=== PATIENT | female | born 1970 | race Caucasian/White ===

== ENCOUNTER 2025-02-27 01:15 | Inpatient (IN) ==
--- OUTSIDE RECORDS SUMMARY | 2025-02-27 01:22 | External Medical Summary | Summary of Care ---
Author Name Unknown Organization [facility] Address [address] [place] [address] Phone [phone] Care Team Providers Care Stem Teacher Name Role Phone Jordan Linton DO Primary Care Provider [phone] Reason for Visit * Reason Onset Date Comments Appointment 02/01/2025 Encounter Details Date Type Department Care Team (Late st Contact Info) Description 02/01/2025 Telephone Family Practice [facility] [place] [address] [facility] [place] [address] Jordan Linton DO [address] [facility] [place] [address] Appointment Allergies Active Allergy Reactions Criticality Noted Date Comments Bandar Inhibitors Cough Medium 02/08/2020 Sulfamethoxazole-Trime thoprim Hives 09/03/2023 Quetiapine Other (Please comment) High 09/17/2022 Elevated blood sugar Bupropion Muscle pain Medium 09/17/2022 documented as of this encounter (statuses as of 02/02/2025) Medications Ziprasidone HCl 20 MG Oral Capsule Take 1 Capsule by mouth 2 times a day with morning and evening meals. Active Escitalopram Oxalate 5 MG Oral Tablet (Lexapro) Take 1 Tablet by mouth at bedtime. 2 Active cloNIDine HCl 0.2 MG Oral Tablet (Catapres)Indica tions:HTN, goal below 140/90 Take 1 Tablet (200 mcg) by mouth in the morning. 90 Tablet 3 2 Active Ondansetron HCl 4 MG Oral Tablet Take 1 Tablet by mouth every 6 hours as needed for Nausea. 30 Tablet 3 Active Colestipol HCl 1 GM Oral Tablet (Colestid)Indica tions:Diarrhea, unspecified type Take 2 Tablets by mouth in the morning and 2 Tablets before bedtime. 120 Tablet 11 4 Active Triamcinolone Acetonide 0.5 % External Cream (Aristocort) Apply topically to affected area 2 times a day. To affected area. 15 g 4 Active Metoprolol Succinate ER 50 MG Oral Tablet Extended Release 24 Hour (toPROL XL)Indications:H TN, goal below 140/90 TAKE 1 & 1/2 (ONE & ONE-HALF) TABLETS BY MOUTH AT BEDTIME 135 Tablet 1 4 Active Spironolactone 25 MG Oral Tablet (Aldactone)Indic ations:HTN, goal below 140/90 Take 2 Tablets by mouth in the morning and 2 Tablets before bedtime. 360 Tablet 1 4 Active Azelastine HCl 137 MCG/SPRAY Nasal SolutionIndicati ons:Chronic rhinitis Administer 1 [place] into each nostril in the morning. 30 mL 5 4 Active documented as of this encounter (statuses as of 02/02/2025) Active Problems Problem Noted Date Diagnosed Date Prediabetes 10/06/2022 Overview: Per Prediabetes protocol Bipolar disorder in full remission 09/17/2022 intradermal nevus,rt axilla & crown 11/03/0212/15 BENIGN HYPERTENSION 11/03/2002 CLASSICAL MIGRAINE WITHOU MENTION OF INTRACTABLE MIGRAINE 11/03/2002 documented as of this encounter (statuses as of 02/02/2025) Resolved Problems Problem Noted Date Diagnosed Date Resolved Date Acquired hypothyroidism 09/17/202206/26 documented as of this encounter (statuses as of 02/02/2025) Immunizations Name Administration Dates Next Due COVID-19 mRNA, LNP-s, No Pre serve, 2-Dose Series (Adform) 06/10/2021 TDAP, Age 7 and older, IM (Adacel) 07/22/2024, documented as of this encounter Social History Tobacco Use Types Packs/Day Years Used Date Smoking Tobacco: Every Day Cigarettes 1.5 40 Smokeless Tobacco: Never Alcohol Use Standard Drinks/Week Comments Yes 0 (1 standard drink = 0.6 oz pur e alcohol) occ. PHQ-2 Answer Date Recorded PHQ Adult Total Score 0 09/17/2022 Hunger Vital Sign Answer Date Recorded Within the past 12 months, y ou worried that your food would run out before you got the money to buy more. Never true 10/04/20 24 Within the past 12 months, t he food you bought just didn't last and you didn't have money to get more. Never true 10/04/2024 Childcare Answer Date Recorded Do you feel overwhelmed with taking care of a child, family member or friend? Yes 10/04/2024 Does your family need help f inding childcare? (Household - for ages 0-17 years) Not on file 10/04/2024 Clothing Answer Date Recorded Have you been unable to get clothing when it was really needed? No 10/04/2024 Is your family able to get c lothes or diapers when needed? (Household - for ages 0-17 years) Not on file 10/04/2024 Personal Safety Answer Date Recorded Do you feel unsafe or have concerns for your saf ety? No 10/04/2024 Do you have concerns for you r family's safety? (Household - for ages 0-17 years) Not on file 10/04/2024 Utilities Answer Date Recorded Do you have trouble paying y our heating, water, or electric bill? No 10/04/2024 Is your family able to pay t he heat, water, or electric bill? (Household - for ages 0-17 years) Not on file 10/04/2024 Does your family have access to good internet? (Household - for ages 0-17 years) Not on file 10/04/2024 Employment Status Answer Date Recorded Are you unemployed or without regular income? No 10/04/2024 Does the household have a re gular source of income? (Household - for ages 0-17 years) Not on file 10/04/2024 Social Connections Answer Date Recorded How often do you feel lonely or isolated from th ose around you? Rarely 10/04/2024 Financial Resource Strain Answer Date R ecorded Do you have any trouble payi ng for your medications, or do you think you might in the future? No 10/04/2024 Does your family have troubl e paying for medicine? (Household - for ages 0-17 years) Not on file 10/04/2024 Transportation Needs Answer Date Record ed Do you have trouble getting a ride to medical visits or work? (Adult - for ages 18 years and over) Not on file 10/04/2024 Does your family have a hard time getting a ride to doctors visits? (Household - for ages 0-17 years) Not on file 10/04/2024 Has lack of transportation k ept you from medical appointments, meetings, work, or from getting things needed for daily living? Check all that apply. No 10/04/2024 Do you (or your family) have trouble finding or paying for a ride (transportation)? (Household - for ages 0-17 years) Not on file 10/04/2024 Housing Stability Answer Date Recorded Do you currently live in a s helter or have no steady place to sleep at night? No 10/04/2024 Do you think you are at risk of becoming homeless? (Adult - for ages 18 years and over) Not on file 10/04/2024 Does your family worry about paying for your home or becoming homeless? (Household - for ages 0-17 years) Not on file 1 12/05/2023 Are you homeless or worried that you might be in the future? No 10/04/2024 Are you (or your family) kin eless or worried that you might be in the future? (Household - for ages 0-17 years) Not on file Food Insecurity Answer Date Recorded Do you need food for this week? No 10/04/2024 Are you able to get enough f ood for your family? (Household - for ages 0-17 years) Not on file 10/04/2024 Does your family need food t his week? (Household - for ages 0-17 years) Not on file 10/04/2024 Do you always have enough fo od for your family? (Household - for ages 0-17 years) Not on file 10/04/2024 Food Insecurity Answer Date Recorded Within the past 12 months, y ou worried that your food would run out before you got the money to buy more. Never true 10/04/20 24 Within the past 12 months, t he food you bought just didn't last and you didn't have money to get more. Never true 10/04/2024 Do you need food for this week? 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 Based on the Complexity Scheduling requirements this patient should be offered a 40 minute Return Appointment within 4 weeks of their currently scheduled appointment. If no appointment is available within 4 weeks of the original appointment. Please document this andleave original appointment on the Appt Desk. Call Attempt: 3 * Telephone Encounter - Taina Sousa OSA - 02/02/2025 1:02 PM EDT A Complexity Scheduling Outreach was made to this patient. Based on the Complexity Scheduling requirements this patient should be offered a 40 minute Return Appointment within 4 weeks of their currently scheduled appointment. If no appointment is available within 4 weeks of the original appointment. Please document this andleave original appointment on the Appt Desk. Call Attempt: 2 * Telephone Encounter - Taina Sousa OSA - 02/01/2025 4:16 PM EDT A Complexity Scheduling Outreach was made to this patient. Based on the Complexity Scheduling requirements this patient should be offered a 40 minute Return Appointment within 4 weeks of their currently scheduled appointment. If no appointment is available within 4 weeks of the original appointment. Please document this andleave original appointment on the Appt Desk. Call Attempt: 1 documented in this encounter Plan of Treatment Upcoming Encounters Date Type Department Care Team (Krystyna st Contact Info) Description 04/18/2025 8:40 AM EDT [facility] [address] [facility] [place] [address] Jordan Linton DO [address] [facility] [place] [address] Scheduled Procedures Name Priority Associated Diagnoses Date/Ti me COLONOSCOPY FLEXIBLE PROXIMA L DIAGNOSTIC Recall History of colonic polyps Health Maintenance Due Date Last Done Comments HIV Screening 1984 Hepatitis C Screening 1987 Hepatitis B Vaccine (1 of 3 - 19+ 3-dose series) 1988 Pneumococcal Vaccine: 50+ Years (1 of 2 - PCV) 1988 Cologuard 2014 Fecal Occult Blood Test 2014 Sigmoidoscopy 2014 Zoster Vaccines (1 of 2) 2019 Mammogram 06/04/2023 06/04/2022, 05/23/2021 Lung Cancer Screening 04/06/2024 04/06/2023 COVID-19 Vaccine ( season) 2024 07/02/2021, 06/10/2021 GFR 04/05/2025 04/05/2024, 10/0 12/2022, 03/17/2023, Additional history exists HbA1c 04/05/2025 04/05/2024, 05/2 12/2022, 07/19/2022 Influenza Vaccine (FLU shot) (Season Ended) 2025 Albumin/Creatinine Ratio 03/17/2026 03/17/2023 Pap Smear 04/03/2026 04/03/2023 Lipid Panel 03/17/2028 03/17/2023, 07/19/2022 Cervical Cancer Screening 04/03/2028 HPV/Co-Test 04/03/2028 04/03/2023 Colonoscopy 09/07/2028 09/07/2023, 08/26, 11/23/2019, Additional history exists Colorectal Cancer Screening 09/07/2028 DTap/Tdap Vaccines (3 - Td or Tdap) 07/22/2034 07/22/2024, 01/11/2019 RETIRED - COLONOSCOPY-EVERY 5 YRS AGES 18-100 Discontinued 09/07/2023, 09/07/2023, 11/23/2019, Additional history exists HPV (Gardasil) Vaccine Aged Out No lo nger eligible based on patient's age to complete this topic MENINGOCOCCAL (MENACTRA/MENVEO) Aged Out No longer eligible based on patient's age to complete this topic Meningitis B Vaccine (Bexsero/Trumemba) Aged Out No longer eligible based on patient's age to complete this topic documented as of this encounter Medical Devices Not on filedocumented as of this encounter Care Teams Stem Teacher Relationship Specialty Start Date End Date Jordan Linton DO [address] [place] [address] PCP - General Family Medicine 03/17/23 documented as of this encounter
--- OUTSIDE RECORDS SUMMARY | 2025-02-27 01:22 | External Medical Summary | Summary of Care ---
Author Name Unknown Organization [facility] Address [address] [facility] [place] [address] Phone [phone] Care Team Providers Care Handyperson Name Role Phone Jordan Linton DO Primary Care Provider [phone] Reason for Visit * Reason Onset Date Comments Appointment 02/01/2025 Encounter Details Date Type Department Care Team (Late st Contact Info) Description 02/01/2025 Telephone Family Practice [facility] [place] [address] [facility] [place] [address] Jordan Linton DO [address] [facility] [place] [address] Appointment Allergies Active Allergy Reactions Criticality Noted [...] MCG/SPRAY Nasal SolutionIndicati ons:Chronic rhinitis Administer 1 [place] into each nostril in the morning. 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 [address] [facility] [place] [address] Jordan Linton DO [address] [facility] [place] [address] Scheduled Procedures Name Priority Associated Diagnoses Date/Ti [...] filedocumented as of this encounter Care Teams Handyperson Relationship Specialty Start Date End Date Jordan Linton DO [address] [place] [address] PCP - General Family Medicine 03/17/23 documented as of this encounter
--- OUTSIDE RECORDS SUMMARY | 2025-02-27 01:23 | External Medical Summary | Summary of Care ---
Author Name Unknown Organization [facility] Address [address] [facility] [place] [address] Phone [phone] Care Team Providers Care Application Manager Name Role Phone Jordan Litnon DO Primary Care Provider [phone] Reason for Visit * Reason Onset Date Comments Appointment 02/01/2025 Encounter Details Date Type Department Care Team (Late st Contact Info) Description 02/01/2025 Telephone Family Practice [facility] [place] 200 [facility] [place] [address] Jordan Linton DO 200 [facility] [place] [address] Appointment Allergies Active Allergy Reactions Criticality Noted [...] MCG/SPRAY Nasal SolutionIndicati ons:Chronic rhinitis Administer 1 [place] into each nostril in the morning. 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 Not [...] Upcoming Encounters Date Type Department Care Team (Late st Contact Info) Description 04/18/2025 8:40 AM EDT Office Visit Family Practice [facility] 200 [facility] [place], [place] [address] Jordan Linton, 200 [facility] [place] [address] Scheduled Procedures Name Priority Associated Diagnoses Date/Ti [...] Lung Cancer Screening 04/06/2024 04/06/2023 COVID-19 Vaccine (3 - season) 2024 07/02/2021, 06/10/2021 GFR 04/05/2025 04/05/2024, 12/2022, 03/17/2023, Additional history exists HbA1c 04/05/2025 04/05/2024, 0512/2022, 07/19/2022 Influenza Vaccine (FLU shot) (Season Ended) [...] filedocumented as of this encounter Care Teams Application Manager Relationship Specialty Start Date End Date Jordan Linton DO [address] [place] [address] PCP - General Family Medicine 03/17/23 documented as of this encounter
--- OUTSIDE RECORDS SUMMARY | 2025-02-27 01:23 | External Medical Summary | Summary of Care ---
Author Name Unknown Organization [facility] Address [address] [facility] [address] Phone [phone] Care Team Providers Care Slurry Blender Name Role Phone Sumanth Sarah DO Primary Care Provider [phone] Reason for Visit * Reason Onset Date Comments Medication Refill 09/17/2024 Encounter Details Date Type Department Care Team (Late st Contact Info) Description 09/17/2024 Refill Family Practice [facility] [place] [address] [facility] [place] [address] Sumanth Sarah DO [address] [facility] [place] [address] HTN, goal below 140/90 Allergies Active Allergy Reactions Criticality Noted Date Comments Bandar Inhibitors Cough Medium 02/08/2020 Sulfamethoxazole-Trime thoprim Hives 09/03/2023 Quetiapine Other (Please comment) High 09/17/2022 Elevated blood sugar Bupropion Muscle pain Medium 09/17/2022 documented as of this encounter (statuses as of 09/19/2024) Medications Ziprasidone HCl 20 MG Oral Capsule Take 1 Capsule by mouth 2 times a day with morning and evening meals. Active Escitalopram Oxalate 5 MG Oral Tablet (Lexapro) Take 1 Tablet by mouth at bedtime. 2 Active cloNIDine HCl 0.2 MG Oral Tablet (Catapres)Indic ations:HTN, goal below 140/90 Take 1 Tablet (200 mcg) by mouth in the morning. 90 Tablet 3 2 Active Ondansetron HCl 4 MG Oral Tablet Take 1 Tablet by mouth every 6 hours as needed for Nausea. 30 Tablet 3 Active Colestipol HCl 1 GM Oral Tablet (Colestid)Indic ations:Diarrhea , unspecified type Take 2 Tablets by mouth in the morning and 2 Tablets before bedtime. 120 Tablet 11 4 Active Triamcinolone Acetonide 0.5 % External Cream (Aristocort) Apply topically to affected area 2 times a day. To affected area. 15 g 4 Active Metoprolol Succinate ER 50 MG Oral Tablet Extended Release 24 Hour (toPROL XL)Indications: HTN, goal below 140/90 TAKE 1 & 1/2 (ONE & ONE-HALF) TABLETS BY MOUTH AT BEDTIME 135 Tablet 1 4 Active Spironolactone 25 MG Oral Tablet (Aldactone)Clara cations:HTN, goal below 140/90 Take 2 Tablets by mouth in the morning and 2 Tablets before bedtime. 360 Tablet 1 4 Active Metoprolol Succinate ER 50 MG Oral Tablet Extended Release 24 Hour (toPROL XL)Indications: HTN, goal below 140/90 TAKE 1 & 1/2 (ONE & ONE-HALF) TABLETS BY MOUTH AT BEDTIME 135 Tablet 3 3 09/17/20 24 Discontinu ed(Refill) Spironolactone 25 MG Oral Tablet (Aldactone)Clara cations:HTN, goal below 140/90 Take 2 Tablets by mouth in the morning and 2 Tablets before bedtime. 360 Tablet 3 3 09/17/20 24 Discontinu ed(Refill) documented as of this encounter (statuses as of 09/19/2024) Active Problems Problem Noted Date Diagnosed Date Prediabetes 10/06/2022 Overview: Per Prediabetes protocol Bipolar disorder in full remission 09/17/2022 intradermal nevus,rt axilla & crown 11/03/0212/15 BENIGN HYPERTENSION 11/03/2002 CLASSICAL MIGRAINE WITHOU MENTION OF INTRACTABLE MIGRAINE 11/03/2002 documented as of this encounter (statuses as of 09/19/2024) Resolved Problems Problem Noted Date Diagnosed Date Resolved Date Acquired hypothyroidism 09/17/202206/26 documented as of this encounter (statuses as of 09/19/2024) Immunizations Name Administration Dates Next Due COVID-19 mRNA, LNP-s, No Pre serve, 2-Dose Series (Pfizer) 06/10/2021 TDAP, Age 7 and older, IM [...] the money to buy more. Never true 03/23/20 Within the past 12 months, t he food you bought just didn't last and you didn't have money to get more. Never true 03/23/2023 Utilities Answer Date Recorded Do you have trouble paying y our heating, water, or electric bill? (Adult - for ages 18 years and over) Not on file 04/12/2024 Is your family able to pay t he heat, water, or electric bill? (Household - for ages 0-17 years) Not on file 04/12/2024 Does your family have access to good internet? (Household - for ages 0-17 years) Not on file 04/12/2024 Social Connections Answer Date Recorded How often do you feel lonely or isolated from those around you? 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 Not on file documented as of this encounter Miscellaneous Notes * Telephone Encounter - Jenifer Dunn [facility] - 09/19/2024 3:04 PM ESTSigned Prescriptions: Disp Refills Metoprolol Succinate ER 50 MG Oral Tablet *135 Ta*1 Sig: TAKE 1 & 1/2 (ONE & ONE-HALF) TABLETS BY MOUTH AT BEDTIMEAuthorizing Provider: SUMANTH SARAH User: JENIFER DUNN Spironolactone 25 MG Oral Tablet ([place]*360 Ta*1 Sig: Take 2 Tablets by mouth in the morning and 2 Tablets before bedtime.Authorizing Provider: SUMANTH SARAH User: JENIFER DUNN documented in this encounter Plan of Treatment Upcoming Encounters Date Type Department Care Team (Late st Contact Info) Description 10/04/2024 9:00 AM EST Office Visit Family Practice [facility] [place] [address] [facility] [place] [address] Sumanth Sarah DO [address] [facility] [address] Scheduled Procedures Name Priority Associated Diagnoses Date/Ti me COLONOSCOPY FLEXIBLE PROXIMA L DIAGNOSTIC Recall History of colonic polyps Health Maintenance Due Date Last Done Comments Pneumococcal Vaccine: Pediatrics (0 to 5 Years) and At-Risk Patients (6 to 64 Years) (1 of 2 - PCV) 1975 HIV Screening 1984 Hepatitis C Screening 1987 Hepatitis B Vaccine (1 of 3 - 19+ 3-dose series) 1988 Cologuard 2014 Fecal Occult Blood Test 2014 Sigmoidoscopy 2014 Zoster Vaccines (1 of 2) 2019 Mammogram 06/04/2023 06/04/2022, 05/23/2021 COVID-19 Vaccine ( - 2023- season) 2024 07/02/2021, 06/10/2021 Influenza Vaccine (FLU shot) (#1) 2024 *BASELINE EKG FOR HTN 07/25/2024 GFR 04/05/2025 04/05/2024, 10/0 12/2022, 03/17/2023, Additional history exists HbA1c 04/05/2025 04/05/2024, 05/2 12/2022, 07/19/2022 Albumin/Creatinine Ratio 03/17/2026 03/17/2023 Pap Smear 04/03/2026 04/03/2023 Lipid Panel 03/17/2028 03/17/2023, 07/19/2022 Cervical Cancer Screening 04/03/2028 HPV/Co-Test 04/03/2028 04/03/2023 Colonoscopy 09/07/2028 09/07/2023, 08/26, 11/23/2019, Additional history exists Colorectal Cancer Screening 09/07/2028 DTap/Tdap Vaccines (3 - Td or Tdap) 07/22/2034 07/22/2024, 01/11/2019 Lung Cancer Screening Completed 04/06/2023 RETIRED - COLONOSCOPY-EVERY 5 YRS AGES 18-100 Discontinued 09/07/2023, 09/07/2023, 11/23/2019, Additional history exists HPV (Gardasil) Vaccine Aged Out No lo nger eligible based on patient's age to complete this topic MENINGOCOCCAL (MENACTRA/MENVEO) Aged Out No longer eligible based on patient's age to complete this topic documented as of this encounter Medical Devices Not on filedocumented as of this encounter Visit Diagnoses Diagnosis HTN, goal below 140/90 Unspecified essential hypertension documented in this encounter Care Teams Slurry Blender Relationship Specialty Start Date End Date Sumanth Sarah DO [address] [place] [address] PCP - General Family Medicine 03/17/23 documented as of this encounter
--- OUTSIDE RECORDS SUMMARY | 2025-02-27 01:23 | External Medical Summary | Summary of Care ---
Author Name Unknown Organization [facility] Address [address] [facility] [place] [address] Phone [phone] Care Team Providers Care Ethnic Studies Professor Name Role Phone Jordan Linton DO Primary Care Provider [phone] Reason for Visit * Reason Comments Re-Check Encounter Details Date Type Department Care Team (Late st Contact Info) Description 10/04/2024 9:00 AM EST Office Visit Family Practice [facility] [address] [facility] [place] [address] Jordan Linton DO [address] [facility] [place] [address] Routine medical exam*; Prediabetes; BENIGN HYPERTENSION; Chronic rhinitis Allergies Active Allergy Reactions Criticality Noted Date Comments Bandar Inhibitors Cough Medium 02/08/2020 Sulfamethoxazole-Trime thoprim Hives 09/03/2023 Quetiapine Other (Please comment) High 09/17/2022 Elevated blood sugar Bupropion Muscle pain Medium 09/17/2022 documented as of this encounter (statuses as of 10/04/2024) Medications Ziprasidone HCl 20 MG Oral Capsule [...] MCG/SPRAY Nasal SolutionIndicati ons:Chronic rhinitis Administer 1 [place] into each nostril in the morning. 30 mL 5 4 Active documented as of this encounter (statuses as of 10/04/2024) Active Problems Problem Noted Date Diagnosed Date Prediabetes 10/06/2022 Overview: Per Prediabetes protocol Bipolar disorder in full remission 09/17/2022 intradermal nevus,rt axilla & crown 11/03/0212/15 BENIGN HYPERTENSION 11/03/2002 CLASSICAL MIGRAINE WITHOU MENTION OF INTRACTABLE MIGRAINE 11/03/2002 documented as of this encounter (statuses as of 10/04/2024) Resolved Problems Problem Noted Date Diagnosed Date Resolved Date Acquired hypothyroidism 09/17/202206/26 documented as of this encounter (statuses as of 10/04/2024) Immunizations Name Administration Dates Next Due COVID-19 mRNA, LNP-s, No Pre serve, 2-Dose Series (VeriFone) 06/10/2021 TDAP, Age 7 and older, IM (Adageovanna) 07/22/2024, documented as of this encounter Social [...] ages 0-17 years) Not on file 10/04/2024 Comments No Sex and Gender Information Value Date Recorded Sex Assigned at Female 09/17/2022 9:14 AM EST Legal Sex Female 5:58 AM EST Gender Identity Female 09/17/2022 9:14 AM EST Sexual Orientation Straight 09/17/2022 9: 14 AM EST 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 Not on file Not on file documented as of this encounter Last Filed Vital Signs Vital Sign Reading Time Taken Comments Blood Pressure 122/78 10/04/2024 9:08 AM EST Pulse 62 10/04/2024 9:08 AM EST Temperature 36.4 °C (97.5 °F) 10/04/2024 9:08 AM ES T Respiratory Rate 16 10/04/2024 9:08 AM EST Oxygen Saturation 93% 10/04/2024 9:08 AM EST Inhaled Oxygen Concentration - - Weight 80.1 kg (176 lb 9.6 oz) 10/04/2024 9:08 A M EST Height 157.5 cm (5' 2.01") 10/04/2024 9:08 AM ES T Body Mass Index 32.29 10/04/2024 9:08 AM EST documented in this encounter Progress Notes * Jordan Linton, - 10/04/2024 9:19 AM EST Subjective: Kay Magana is a 53 year old female. Chief Complaint Patient presents with Re-Check HPI: Pt here for a physical. PMHx, PSHx, SHx, FHx, Medications, and Allergies fully reviewed Daughter doing better than before. HAs had urinary issues. Walks a lot according to her phone. Limits her diet. Just not hungry in the AM. Avoids late night eating. BP wonderful today. Good when checking at work too. Mammogram ordered. Cannot afford follow-up US. No desire for any shots. Patient Active Problem List Diagnosis BENIGN HYPERTENSION CLASSICAL MIGRAINE WITHOU MENTION OF INTRACTABLE MIGRAINE intradermal nevus,rt axilla & crown 11/03/02 Bipolar disorder in full remission (HCC) Prediabetes Current Outpatient Medications Medication Sig Dispense Refill Ziprasidone HCl 20 MG Oral Capsule Take 1 Capsule by mouth 2 times a day with morning and evening meals. Escitalopram Oxalate 5 MG Oral Tablet (Lexapro) Take 1 Tablet by mouth at bedtime. cloNIDine HCl 0.2 MG Oral Tablet (Catapres) Take 1 Tablet (200 mcg) by mouth in the morning. 90 Tablet 3 Ondansetron HCl 4 MG Oral Tablet Take 1 Tablet by mouth every 6 hours as needed for Nausea. 30 Tablet 0 Colestipol HCl 1 GM Oral Tablet (Colestid) Take 2 Tablets by mouth in the morning and 2 Tablets before bedtime. 120 Tablet 11 Triamcinolone Acetonide 0.5 % External Cream (Aristocort) Apply topically to affected area 2 times a day. To affected area. 15 g 0 Metoprolol Succinate ER 50 MG Oral Tablet Extended Release 24 Hour (toPROL XL) TAKE 1 & 1/2 (ONE & ONE-HALF) TABLETS BY MOUTH AT BEDTIME 135 Tablet 1 Spironolactone 25 MG Oral Tablet (Aldactone) Take 2 Tablets by mouth in the morning and 2 Tablets before bedtime. 360 Tablet 1 No current facility-administered medications for this visit. Review of patient's allergies indicates: Allergen Reactions Seroquel [Quetiapine] Other (Please comment) Elevated blood sugar Bandar Inhibitors Cough Wellbutrin [Bupropion] Muscle pain Bactrim [Sulfamethoxazole-Trimethoprim] Hives OBJECTIVE: BP 122/78 | Pulse 62 | Temp 97.5 °F (36.4 °C) (Tympanic) | Resp 16 | Ht 5' 2.01" (1.575 m) | Wt 176 lb 9.6 oz (80.1 kg) | SpO2 93% | BMI 32.29 kg/m² | BSA 1.87 m² Estimated body mass index is 32.29 kg/m² as calculated from the following: Height as of this encounter: 5' 2.01" (1.575 m). Weight as of this encounter: 176 lb 9.6 oz (80.1 kg). BP Readings from Last 3 Encounters: 10/04/24 122/78 07/22/24 157/87 03/18/24 142/94 Wt Readings from Last 3 Encounters: 10/04/24 176 lb 9.6 oz (80.1 kg) 07/22/24 185 lb (83.9 kg) 03/18/24 184 lb (83.5 kg) ROS: General: No change in weight, No weakness, No fatigue and No fevers, sweats, or chills Head: No significant headache and No recent significant head injury Eyes: No recent significant change in vision, No eye pain, redness, discharge, or excessive tearing, No diplopia and No h/o cataracts or glaucoma Ears: No recent change in hearing, No tinnitus or vertigo, No ear pain and No ear discharge Nose: No h/o frequent colds or sinusitis, No nasal stuffiness, No h/o hay fever and No significant epistaxis Throat/Oropharynx: No teeth or gum problems, No bleeding gums, No tongue complaints, No sore throatand No recent change in voice or hoarseness Neck: No complaint of lumps in neck, No swollen glands, No recent swelling in thyroid area and No significant pain in neck Breast: No new breast lumps, No severe breast pain, No nipple discharge, No recent change in shape/contor and Patient does perform monthly self breast exam Respiratory: No cough, sputum, or hemoptysis, No wheezing, No shortness of breath and No recent change in breathing Cardiac: No chest pain, No shortness of breath, No dyspnea on exertion, No orthopnea, No paroxysmalnocturnal dyspnea, No edema, No palpitations and No syncope Gastrointestinal: No dysphagia, No significant heartburn, No significant change in appetite, No nausea, vomiting, diarrhea, or constipation, No hematemesis, No blood in stools or black tarry stools, No abdominal bloating or early satiety and No abdominal pain Urinary: No urinary frequency, No dysuria, No hematuria, No urinary urgency, No polyuria, No nocturia, No incontinence, No hesitancy and No sensation of incomplete voiding Musculoskeletal: No joint pain or stiffness, No arthritis, No backache, No muscle pains or cramps and No joint swelling Hematologic: No anemia, No easy bruising or abnormal bleeding and No history of transfusion Neurologic: No fainting or blackouts, No seizures, No paralysis or focal weakness, No numbness or tingling, No tremors and No significant problems with memory PHYSICAL EXAM: General: alert, healthy and no distress Head: Normocephalic, No masses, lesions, tenderness or abnormalities Ears: External ears normal, Canals clear, TM's Normal Nose: no mucosal erythema, no mucosal edema, no purulent discharge Oropharynx: no exudate, no erythema, lips, buccal mucosa, and tongue normal and mucous membranes are moist Neck: supple, no adenopathy, no bruits, thyroid normal size, non-tender, without nodularity Heart: regular rate & rhythm, no murmurs and no gallops Lungs: chest symmetric with normal AP diameter, no chest deformities noted, no chest wall tenderness, lungs clear to auscultation Abdomen: abdomen soft, non-tender, normal bowel sounds and no masses or organomegaly Extremities: less than 2 second capillary refill, no joint deformities, effusion, or inflammation ASSESSMENT/Plan Routine medical exam (Primary) Prediabetes - HEMOGLOBIN A1C; Future; Expected date: 04/04/2025 BENIGN HYPERTENSION - BASIC METABOLIC PANEL; Future; Expected date: 04/04/2025 Chronic rhinitis - Azelastine HCl 137 MCG/SPRAY Nasal Solution; Administer 1 [place] into each nostril in the morning. Dental and sun care discussed along with weight. Will check blood work before next visit, try Azelastine for chronic rhinitis. The above was discussed and understanding was expressed. Jordan Linton DO documented in this encounter Nursing Notes * Bridget Jovel NA - 10/04/2024 9:05 AM EST Kay Magana presents for 6 month recheck. Patient denies any concerns at this time. Medications & HM reviewed. Patient has been verbally educated on the need or importance of Breast Cancer Screening, HepB Vaccine, Pneumococcal Vaccine, and Shingles Vaccine and has declined topic(s). documented in this encounter Plan of Treatment Upcoming Encounters Date Type Department Care Team (Late st Contact Info) Description 04/18/2025 8:40 AM EDT Office Visit Family Practice [facility] [place] [address] [place] [id number] Jordan Linton DO [address] [facility] [place] [id number] Scheduled Orders Name Type Priority Associated Diagnoses Orde r Schedule HEMOGLOBIN A1C Lab Routine Prediabetes Expected: 04/04/2025 (Approximate), Expires: 10/04/2025 BASIC METABOLIC PANEL Lab Routine BENIGN HYPERTENSION Expected: 04/04/2025 (Approximate), Expires: 10/04/2025 Scheduled Procedures Name Priority Associated Diagnoses Date/Ti [...] 2019 Mammogram 06/04/2023 06/04/2022, 05/23/2021 COVID-19 Vaccine (2023- season) 2024 07/02/2021, 06/10/2021 Influenza Vaccine (FLU shot) (#1) 2024 *BASELINE EKG FOR HTN 07/25/2024 GFR 04/05/2025 04/05/2024, 10/0 12/2022, 03/17/2023, Additional history exists HbA1c 04/05/2025 04/05/2024, 0512/2022, 07/19/2022 Albumin/Creatinine Ratio 03/17/2026 03/17/2023 Pap Smear [...] as of this encounter Visit Diagnoses Diagnosis Routine medical exam- Primary Routine general medical examination at a health care facility Prediabetes Other abnormal glucose BENIGN HYPERTENSION Unspecified essential hypertension Chronic rhinitis documented in this encounter Care Teams Ethnic Studies Professor Relationship Specialty Start Date End Date Jordan Linton DO [address] [place] [address] PCP - General Family Medicine 03/17/23 documented as of this encounter
--- NOTE | 2025-02-27 02:14 | Emergency Department Note ---
Impression & Plan Acute non-ST elevation myocardial infarction (NSTEMI) admit to the [facility] ED Provider Note NAME: CLAUDE HERNÁNDEZ AGE: 54 SEX: Female INFORMANT: Patient ED PROVIDER(S): Janis Witt DO CHIEF COMPLAINT: chest pain and shortness of breath PLAN: Disposition: admit to the [facility] MEDICAL DECISION MAKING: This is a 54-year-old female patient who presents to the emergency department after developing significant chest pain and shortness of breath while trying to move large logs out of the middle of the road. Patient states that she came up on these pieces of wood from a fall injury and tried to move them but had significant chest discomfort, diaphoresis, chest tightness and could not breathe. She then drove home feeling as if she was going to and called EMS. EKG was obtained and showed no obvious signs of ischemia. Laboratory studies revealed a white blood cell count of 13.8. H&H was stable. Coags were normal. Glucose was 124. Troponin was elevated at 164. EMS had given the patient aspirin. the patient remained hypertensive and was given a dose of IV Lopressor. She was bolused with IV heparin and started on a heparin drip. Patient's blood pressure was controlled nicely. I discussed the case with the [facility] Care/management discussed with: equipment manager and [facility] Triage Nursing notes: reviewed and agree with them. Vital Signs: reviewed and remarkable for hypertension Additional History obtained from: the patient's son who was at the bedside Chronic Medical/Social Conditions affecting care: significant family history which includes the patient's father who had multivessel heart disease requiring CABG in his 40s. Differential Diagnosis: STEMI, NSTEMI, cardiac ischemia anxiety, CHF Diagnostics, independently interpreted by me: ECG: normal sinus rhythm at a rate of 79 with PACs. There is poor baseline artifact. There is no obvious ST segment elevation or signs of ischemia. Cardiac Monitoring: Normal sinus rhythm at a rate of 82 Imaging studies: portable chest x-ray: No acute pulmonary infiltrates or consolidation as per my independent interpretation HPI: 54 year old Female arrives for evaluation of chest pain shortness of breath. presents to the emergency department after developing significant chest pain and shortness of breath while trying to move large logs out of the middle of the road. Patient states that she came up on these pieces of wood from a fall injury and tried to move them but had significant chest discomfort, diaphoresis, chest tightness and could not breathe. She then drove home feeling as if she was going to and called EMS. PAST MEDICAL HISTORY: bipolar disorder, hypertension, bile production status post cholecystic, PAST SURGICAL HISTORY: cholecystectomy, family history: The patient's father had CABG at age 48 SOCIAL HISTORY: patient smokes 1.5 packs of cigarettes per day HOME MEDICATIONS: see list ALLERGIES: none VITALS: See Below PHYSICAL EXAMINATION: HEENT: Head - normocephalic and atraumatic Pupils are equal, round, and reactive to light. Extraocular eye muscles are intact, and sclera are anicteric. Nose - moist nasal mucosa without discharge. Mouth - moist buccal mucosa. Oropharynx is nonerythematous and there is no tonsillar exudate or edema noted. Neck: Supple; no JVD, nuchal rigidity, cervical lymphadenopathy, or auscultated bruits. Heart: Regular rate and rhythm. There is a normal S1 and S2 with no murmurs, clicks, or gallops appreciated. Lungs: Clear to auscultation bilaterally with no wheezes, rales, or rhonchi. Abdomen: Soft, completely nontender, nondistended, with good bowel sounds. There are no palpable pulsatile masses or hepatosplenomegaly. There is no guarding, rigidity, or rebound noted. Extremities: No evidence of cyanosis, clubbing, or edema. There are easily palpable peripheral pulses. Skin: warm and dry with good turgor and no rashes. Emergency department treatment: collarette separator, IV Lopressor, IV heparin bolus, IV heparin drip Emergency Department course: The patient was evaluated in room A-2. A complete history and physical was performed. A twelve-lead EKG was obtained as described above. An order was placed for continuous cardiac monitoring. Patient was in a normal sinus rhythm at a rate of 82. She was chest pain-free upon my evaluation. Portable chest x-ray was performed as described above. I reviewed results of laboratory studies and x-ray with the patient and her son. Patient had her stool heme tested by nursing staff which was negative. Her blood pressure was controlled with IV Lopressor. She was bolused with IV heparin and started on a heparin drip. [facility] I have personally spent greater than 30 minutes of critical care time in the direct management of this patient. This includes bedside care, interpretation of diagnostic studies, and testing, discussion with consultants, patient, and family members, and other required patient management activities. This 30 minutes is in excess of all separately billable procedures. Past Med/Surg History Problem List (Updated 02/27/25 @ 06:53 by Janis Witt DO) Acute non-ST elevation myocardial infarction (NSTEMI) (Acute) NSTEMI (non-ST elevated myocardial infarction) Chest pain (Acute) Acute chest pain (Acute) GERD (gastroesophageal reflux disease) (Acute) Social History Smoking Status: Current every day smoker Tobacco Type: Cigarettes Preferred Language: Occitan Feels Safe at Home: Yes Allergies Allergies Allergy/AdvReac Type Severity Reaction Status Date / Time No Known Allergies Allergy Unknown Verified 04/23/05 17:44 Home Meds Home Medications Medication Instructions Recorded Confirmed clonidine HCl 0.2 mg tablet 0.2 mg PO DAILY 02/27/25 02/27/25 colestipol 1 gram tablet 1 g PO BID 02/27/25 02/27/25 escitalopram oxalate 5 mg tablet 5 mg PO DAILY 02/27/25 02/27/25 metoprolol succinate 50 mg 75 mg PO DAILY 02/27/25 02/27/25 tablet,extended release 24 hr spironolactone 25 mg tablet 50 mg PO BID 02/27/25 02/27/25 ziprasidone HCl 20 mg capsule 20 mg PO BID 02/27/25 02/27/25 (Kody) Results & Data (ED) Vital Signs Vital Signs - 24 hr 02/27/25 01:22 02/27/25 01:22 02/27/25 01:27 Pulse Rate 85 82 Pulse Rate [Apical] Pulse Rate from SpO2 Sensor Pulse Rhythm Respiratory Rate 20 Respiratory Effort / Characteristics Non-Labored Spontaneous Respiratory Depth Normal Respiratory Pattern Regular Blood Pressure 166/108 H Blood Pressure [Right Arm] Blood Pressure Mean 127 Blood Pressure Mean [Right Arm] Blood Pressure Position Lying Blood Pressure Position [Right Arm] Pulse Oximetry 94 94 Oxygen Delivery Method Room Air Room Air Sepsis Recent Fever Within 48 Hours No Sepsis New/Unexplained Change in Mental Status N/A Sepsis Action Taken by Nursing No Action Required 02/27/25 02:32 02/27/25 02:32 02/27/25 03:00 Pulse Rate 80 92 H Pulse Rate [Apical] 79 Pulse Rate from SpO2 Sensor 90 Pulse Rhythm Regular Respiratory Rate 18 20 Respiratory Effort / Characteristics Respiratory Depth Respiratory Pattern Blood Pressure Blood Pressure [Right Arm] 153/100 H Blood Pressure Mean Blood Pressure Mean [Right Arm] 117 Blood Pressure Position Blood Pressure Position [Right Arm] Lying Pulse Oximetry 94 94 93 Oxygen Delivery Method Room Air Room Air Room Air Sepsis Recent Fever Within 48 Hours Sepsis New/Unexplained Change in Mental Status Sepsis Action Taken by Nursing 02/27/25 03:00 Pulse Rate Pulse Rate [Apical] Pulse Rate from SpO2 Sensor Pulse Rhythm Respiratory Rate Respiratory Effort / Characteristics Respiratory Depth Respiratory Pattern Blood Pressure 184/113 H Blood Pressure [Right Arm] Blood Pressure Mean 142 Blood Pressure Mean [Right Arm] Blood Pressure Position Blood Pressure Position [Right Arm] Pulse Oximetry Oxygen Delivery Method Sepsis Recent Fever Within 48 Hours Sepsis New/Unexplained Change in Mental Status Sepsis Action Taken by Nursing Laboratory Data 02/27/25 01:30 02/27/25 01:30 Lab Results 02/27/25 Range/Units 01:30 WBC 13.80 H (4.8-10.8) K/ul RBC 4.46 (4.20-5.40) M/uL Hgb 15.3 (12.0-16.0) g/dl Hct 44.0 (37.0-47.0) % MCV 98.7 (80.0-100.0) fL MCH 34.3 H (25.0-34.0) pg MCHC 34.8 (32.0-36.0) g/dL RDW Std Deviation 47.9 H (36.4-46.3) fL RDW Coeff of Lul 13.2 (11.5-14.5) % Plt Count 387 (130-400) K/uL MPV 9.0 L (9.4-12.4) fL Immature Gran % (Auto) 0.5 % Neut % (Auto) 70.1 % Lymph % (Auto) 23.0 % Brule % (Auto) 5.1 % Eos % (Auto) 0.9 % Baso % (Auto) 0.4 % Neut # (Auto) 9.68 H (1.40-6.50) K/uL Lymph # (Auto) 3.18 (1.20-3.40) K/uL Brule # (Auto) 0.70 H (0.11-0.59) K/uL Eos # (Auto) 0.12 (0.00-0.50) K/uL Baso # (Auto) 0.05 (0.00-0.20) K/uL Immature Gran # (Auto) 0.07 (0.01-0.20) K/uL PT 10.3 (9.0-12.0) Seconds INR 0.9 (0.9-1.1) APTT 31 (21-31) Seconds PTT Ratio 1.2 Sodium 138 (136-145) mmol/L Potassium 3.6 (3.5-5.1) mmol/L Chloride 99 (98-107) mmol/L Carbon Dioxide 30 (21-32) mmol/L Anion Gap 9 (3-11) BUN 10 (6-23) mg/dl Creatinine 0.84 (0.6-1.2) mg/dl Est Cr Clr Drug Dosing 77.3 ml/min eGFR 82.01 BUN/Creatinine Ratio 11.9 (10-20) Glucose 124 H (70-99(Fasting)) mg/dl Calcium 9.8 (8.6-10.3) mg/dl Magnesium 1.7 (1.7-2.4) mg/dl Total Bilirubin 0.6 (0.2-1.0) mg/dl AST 42 H (13-39) U/L ALT 33 (7-52) U/L Alkaline Phosphatase 57 (34-104) U/L Troponin I High Sens 164.6 H* (0-14) pg/ml Total Protein 7.7 (6.0-8.3) gm/dl Albumin 4.4 (3.4-5.0) gm/dl Globulin 3.3 (2.5-4.0) gm/dl Albumin/Globulin Ratio 1.3 (0.9-2) Lipase 24 (11-82) U/L Administered Medications Sodium Chloride (Nss) 1,000 mls @ 60 mls/hr IV .[id number] STA Stop: 02/27/25 19:53 Last Admin: 02/27/25 04:02 Dose: 60 mls/hr Documented By: Heparin Sodium/Dextrose (Heparin 51334 Unit/500 Ml D5w) 25,000 units in 500 mls @ 23 mls/hr IV .[id number] WILLIAM; Protocol Stop: 03/29/25 03:29 Last Admin: 02/27/25 04:04 Dose: 1,150 units/hr, 23 mls/hr Documented By: Co-signed By: CHARBEL Lorazepam (Lorazepam 0.5 Mg Tab) 0.5 mg PO TID PRN PRN Reason: Anxiety Stop: 03/29/25 03:51 Last Admin: 02/27/25 06:37 Dose: 0.5 mg Documented By: JULIENNEW Discontinued Medications Heparin Sodium (Porcine) (Heparin Sod (Porcine) 1000 Unit/Ml) 1 units IV NOW ONE Stop: 02/27/25 03:29 Last Admin: 02/27/25 04:03 Dose: 5,000 units Documented By: Co-signed By: CHARBEL Metoprolol Tartrate (Metoprolol Tartrate 1 Mg/Ml Vial) 5 mg IV NOW STA Stop: 02/27/25 03:13 Last Admin: 02/27/25 04:38 Dose: 5 mg Documented By: Nitroglycerin (Nitroglycerin Sl 0.4 Mg/Tab Tab) 0.4 mg SL NOW STA Stop: 02/27/25 03:10 Last Admin: 02/27/25 03:25 Dose: 0.4 mg Documented By: Ziprasidone (Ziprasidone Hcl 20 Mg Cap) 20 mg PO NOW STA Stop: 02/27/25 03:13 Last Admin: 02/27/25 03:42 Dose: 20 mg Documented By: Imaging Data Radiologist's Impression: Chest X-Ray 02/27/25 02:07 EXAM: XR chest 1V portable CLINICAL HISTORY: Chest pain, nonspecific TECHNIQUE: Radiograph of chest was acquired. COMPARISON: 07/12/2015 FINDINGS: Increased soft tissue density in bilateral lower zones - likely due to overlying soft tissue The lungs are clear and well-expanded with no pulmonary infiltrate or pleural effusion. The cardiomediastinal silhouette is within normal limits. No acute osseous abnormality. IMPRESSION: 1. No acute cardiopulmonary disease. Electronically signed by Ricardo Layne 02-27-2025 03:41 AM Discharge Plan Visit Data Chief Complaint: Cardiac Assessment Stated Complaint: CHEST TIGHT, SOB ED Provider: Janis Witt Discharge Problem: Acute non-ST elevation myocardial infarction (NSTEMI) Condition: Critical Discharge Instructions Interventions: ED Discharge Assessment Last Done: 02/27/25 03:53
[2025-02-27 02:20] LABS: Basophils # (auto) 0.05 K/uL (0.00-0.20); Basophils % (auto) 0.4 %; Eosinophils # (auto) 0.12 K/uL (0.00-0.50); Eosinophils % (auto) 0.9 %; Hemoglobin 15.3 g/dl (12.0-16.0); Immature Granulocytes # (auto) 0.07 K/uL (0.01-0.20); Immature Granulocytes % (auto) 0.5 %; Lymphocytes # (auto) 3.18 K/uL (1.20-3.40); Mean Corpuscular Hemoglobin 34.3 pg (25.0-34.0); Mean Corpuscular Hgb Conc 34.8 g/dL (32.0-36.0); Mean Corpuscular Volume 98.7 fL (80.0-100.0); Monocytes % (auto) 5.1 %; Neutrophils # (auto) 9.68 K/uL (1.40-6.50); Neutrophils % (auto) 70.1 %; Platelet Count 387 K/uL (130-400); RDW Coefficient of Variation 13.2 % (11.5-14.5); RDW Standard Deviation 47.9 fL (36.4-46.3); Red Blood Count 4.46 M/uL (4.20-5.40)
[2025-02-27 02:28] LABS: Albumin Globulin Ratio 1.3 (0.9-2); Albumin Level 4.4 gm/dl (3.4-5.0); BUN Creatinine Ratio 11.9 (10-20); Bilirubin,Total 0.6 mg/dl (0.2-1.0); Calcium 9.8 mg/dl (8.6-10.3); Creatinine Clr Calc Pharmacy 77.3 ml/min; Globulin 3.3 gm/dl (2.5-4.0); Potassium 3.6 mmol/L (3.5-5.1); Total Protein 7.7 gm/dl (6.0-8.3)
[2025-02-27 02:54] LABS: Troponin I High Sensitivity 164.6 pg/ml (0-14)
[2025-02-27] MEDS ORDERED: Heparin IV Adult Wt-Based Standard w/ INITIAL Bolus Protocol IV STA (03:13)
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
[2025-02-27] MEDS: NITROGLYCERIN SL 0.4 MG/TAB TAB SL STA (03:25)
[2025-02-27 03:31] LABS: INR 0.9 (0.9-1.1); Partial Thromboplastin Ratio 1.2; Partial Thromboplastin Time 31 Seconds (21-31); Prothrombin Time 10.3 Seconds (9.0-12.0)
[2025-02-27 03:37] LABS: Magnesium 1.7 mg/dl (1.7-2.4)
--- NOTE | 2025-02-27 03:42 | XRay Report ---
EXAM: XR chest 1V portable CLINICAL HISTORY: Chest pain, nonspecific TECHNIQUE: Radiograph of chest was acquired. COMPARISON: 07/12/2015 FINDINGS: Increased soft tissue density in bilateral lower zones - likely due to overlying soft tissue The lungs are clear and well-expanded with no pulmonary infiltrate or pleural effusion. The cardiomediastinal silhouette is within normal limits. No acute osseous abnormality. IMPRESSION: 1. No acute cardiopulmonary disease. Electronically signed by Ricardo Layne 02-27-2025 03:41 AM
[2025-02-27] MEDS ORDERED: PROMETHAZINE 12.5 MG/50.5 ML BAG IV PRN (03:52)
[2025-02-27] MEDS ORDERED: oxyCODONE HCL IR 5 MG TAB (IMMEDIATE RELEASE) PO PRN (03:52)
[2025-02-27] MEDS ORDERED: MoRPHine SULFATE 4 MG/ML 1 ML CARP\\VIAL IV PRN (03:52)
[2025-02-27] MEDS ORDERED: NITROGLYCERIN SL 0.4 MG/TAB TAB SL PRN (03:52)
[2025-02-27] MEDS: SODIUM CHLORIDE 0.9% 1,000 ML IV STA (04:02)
[2025-02-27] MEDS: HEPARIN SOD (PORCINE) 1000 UNIT/ML IV ONE ×2 (04:03→11:16)
[2025-02-27] MEDS: HEPARIN 25000 UNIT/500 ML D5W 25,000 UNITS/500 ML BAG IV SCH (04:04)
[2025-02-27] MEDS: METOPROLOL TARTRATE 1 MG/ML VIAL IV STA (04:38)
[2025-02-27] MEDS: LORazepam 0.5 MG TAB PO PRN (06:37)
[2025-02-27 06:53] LABS: Chol HDL Ratio 5.2 (0-5)
[2025-02-27 07:01] LABS: Troponin I High Sensitivity 467.4 pg/ml (0-14)
[2025-02-27 07:04] LABS: Estimated Average Glucose 128 mg/dl; Hemoglobin A1C 6.1 % (4.5-5.6)
--- NOTE | 2025-02-27 09:01 | Electrocardiogram Report ---
Test Reason : Blood Pressure : */* mmHG Vent. Rate : 79 BPM Atrial Rate : 79 BPM P-R Int : 146 ms QRS Dur : 78 ms QT Int : 396 ms P-R-T Axes : 57 51 86 degrees QTcB Int : 454 ms Sinus rhythm with Premature atrial complexes Nonspecific ST and T wave abnormality Abnormal ECG When compared with ECG of 07-Apr-2018 12:12, Premature atrial complexes are now Present Lead artifact in V3 and V6 limits interpretation Confirmed by Maribel Estrella (Jackie) on 02/27/2025 9:01:13 AM Referred By: REFERRED SELF Confirmed By: Maribel Estrella
[2025-02-27] MEDS: ATORVASTATIN 40 MG TAB PO SCH (09:12)
[2025-02-27] MEDS: NICOTINE 21 MG/24 HR TDSY TD SCH (09:12)
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
[2025-02-27] MEDS: ESCITALOPRAM OXALATE 10 MG TAB PO SCH (09:42)
[2025-02-27] MEDS: cloNIDine HCL 0.1 MG TAB PO SCH (09:42)
[2025-02-27] MEDS: METOPROLOL SUCC 25MG EXT REL TAB PO SCH (09:42)
[2025-02-27 10:58] LABS: ANTI-Xa, UFH(UnfractionatedHep 0.18 IU/ml (0.3-0.7)
[2025-02-27] MEDS: COLESTIPOL HCL 1 GM TAB PO SCH (11:16)
--- NOTE | 2025-02-27 13:38 | Pre Anesthesia Assessment ---
Date of Service February 27, 2025 Pre Sedation Assessment Vital Signs Temp Pulse Pulse Pulse Resp BP BP 02/27/25 13:28 65 18 120/84 02/27/25 12:13 98.2 F 60 18 115/72 02/27/25 09:46 71 22 138/97 02/27/25 09:03 78 22 02/27/25 09:00 125/88 02/27/25 08:45 73 18 02/27/25 08:30 126/68 02/27/25 08:24 75 19 02/27/25 08:20 02/27/25 08:12 74 20 02/27/25 08:00 142/82 H 02/27/25 07:30 146/96 H 02/27/25 07:24 75 21 02/27/25 06:59 76 02/27/25 06:57 80 18 131/95 02/27/25 06:32 131/95 02/27/25 06:30 72 22 02/27/25 05:48 66 02/27/25 05:30 150/110 H 02/27/25 05:05 74 146/109 H 02/27/25 05:04 81 02/27/25 05:00 67 19 02/27/25 05:00 146/109 H 02/27/25 04:38 77 167/109 H 02/27/25 04:30 80 16 02/27/25 04:30 167/109 H 02/27/25 04:19 89 95 H 145/96 H 02/27/25 04:19 81 18 02/27/25 04:09 83 22 02/27/25 04:02 145/96 H 02/27/25 03:48 82 22 02/27/25 03:44 171/106 H 02/27/25 03:33 77 17 02/27/25 03:30 156/101 H 02/27/25 03:00 184/113 H 02/27/25 03:00 92 H 20 02/27/25 02:32 79 18 153/100 H 02/27/25 02:32 80 02/27/25 01:27 82 02/27/25 01:22 02/27/25 01:22 85 20 166/108 H Pulse Ox O2 Del Method O2 Flow Rate 02/27/25 13:28 97 Room Air 02/27/25 12:13 97 Nasal Cannula 2 02/27/25 09:46 97 Nasal Cannula 2 02/27/25 09:03 98 Nasal Cannula 2 02/27/25 09:00 02/27/25 08:45 97 Nasal Cannula 2 02/27/25 08:30 02/27/25 08:24 97 Nasal Cannula 2 02/27/25 08:20 89 L Room Air 02/27/25 08:12 90 Room Air 02/27/25 08:00 02/27/25 07:30 02/27/25 07:24 92 Room Air 02/27/25 06:59 02/27/25 06:57 93 Room Air 02/27/25 06:32 02/27/25 06:30 93 Room Air 02/27/25 05:48 95 Room Air 02/27/25 05:30 02/27/25 05:05 02/27/25 05:04 02/27/25 05:00 93 Room Air 02/27/25 05:00 02/27/25 04:38 02/27/25 04:30 93 Room Air 02/27/25 04:30 02/27/25 04:19 94 Room Air 02/27/25 04:19 95 Room Air 02/27/25 04:09 93 Room Air 02/27/25 04:02 02/27/25 03:48 02/27/25 03:44 02/27/25 03:33 92 Room Air 02/27/25 03:30 02/27/25 03:00 02/27/25 03:00 93 Room Air 02/27/25 02:32 94 Room Air 02/27/25 02:32 94 Room Air 02/27/25 01:27 02/27/25 01:22 94 Room Air 02/27/25 01:22 94 Room Air Cardiovascular + regular rate Respiratory + respiratory effort normal Pre-Sedation Airway Assessment Smoking Status: Current every day smoker Hx Sleep Apnea: No Hx Difficult Intubation: No Short, Thick Neck: No Thyromental Distance: > or= 3.5 Finger Breadths Oral Cavity: + WNL Mallampati Class: III ASA: ASA3 NPO Status Date of Last Intake of Fluids: 02/27/25 Time of Last Intake of Fluids: 03:00 Date of Last Intake of Solid Food: 02/26/25 Time of Last Intake of Solid Foods: 18:00 Procedure Planning Contraindications for Sedation: none Current Medications Reviewed: Yes Notes The planned sedation has been discussed with the patient. Informed Consent was obtained. I have identified the patient, determined the appropriateness of sedation and have assessed the patient immediately prior to the procedure. All medicine(s) and interventions are by my order.
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
[2025-02-27 14:50] LABS: iSTAT Arterial Blood Gas HCO3 27 meg/L (19-24); iSTAT Arterial Blood Gas pCO2 48 mmHg (35-46); iSTAT Arterial Blood Gas pH 7.35 (7.35-7.45); iSTAT Arterial Blood Gas pO2 56 mmHg (80-95); iSTAT Carbon Dioxide 28 mmol/L (24-31); iSTAT Hematocrit 40 % (37-47); iSTAT Hemoglobin 13.6 g/dl (12.0-16.0); iSTAT Potassium 4.1 mmol/L (3.3-5.0); iSTAT Sodium 138 mmol/L (135-144)
[2025-02-27 14:52] LABS: iSTAT Arterial Blood Gas HCO3 29 meg/L (19-24); iSTAT Arterial Blood Gas pCO2 53 mmHg (35-46); iSTAT Arterial Blood Gas pH 7.35 (7.35-7.45); iSTAT Arterial Blood Gas pO2 30 mmHg (80-95); iSTAT Carbon Dioxide 31 mmol/L (24-31); iSTAT Hematocrit 41 % (37-47); iSTAT Hemoglobin 13.9 g/dl (12.0-16.0); iSTAT Potassium 4.2 mmol/L (3.3-5.0); iSTAT Sodium 137 mmol/L (135-144)
[2025-02-27] MEDS: MIDAZOLAM HCL 1 MG/ML 2ML VIAL ONE ×2 (14:53→15:26)
[2025-02-27] MEDS: niCARdipine 2,000 MCG/20 ML SYR ONE (14:53)
[2025-02-27] MEDS: IODIXANOL (VISIPAQUE) 320 MG/ML 100ML IV ONE (14:53)
[2025-02-27] MEDS: NITROGLYCERIN/D5W 100MCG/ML 20ML SYR ONE (14:53)
[2025-02-27] MEDS: OPTIRAY 350 ONE (15:25)
[2025-02-27] MEDS: HEPARIN (PORCINE) 1000 UNIT/ML 10 ML (CATH LAB USE ONLY) ONE (15:25)
[2025-02-27] MEDS: fentaNYL citrate PF 100 MCG/2 ML VIAL ONE (15:25)
[2025-02-27] MEDS: CLOPIDOGREL BISULFATE 300 MG TAB ONE (15:28)
--- NOTE | 2025-02-27 15:31 | Post Anesthesia Assessment ---
Date of Service February 27, 2025 Post Sedation Assessment Vital Signs Temp Pulse Pulse Pulse Resp BP BP 02/27/25 14:55 63 02/27/25 14:55 61 02/27/25 13:28 65 18 120/84 02/27/25 12:13 98.2 F 60 18 115/72 02/27/25 09:46 71 22 138/97 02/27/25 09:03 78 22 02/27/25 09:00 125/88 02/27/25 08:45 73 18 02/27/25 08:30 126/68 02/27/25 08:24 75 19 02/27/25 08:20 02/27/25 08:12 74 20 02/27/25 08:00 142/82 H 02/27/25 07:30 146/96 H 02/27/25 07:24 75 21 02/27/25 06:59 76 02/27/25 06:57 80 18 131/95 02/27/25 06:32 131/95 02/27/25 06:30 72 22 02/27/25 05:48 66 02/27/25 05:30 150/110 H 02/27/25 05:05 74 146/109 H 02/27/25 05:04 81 02/27/25 05:00 67 19 02/27/25 05:00 146/109 H 02/27/25 04:38 77 167/109 H 02/27/25 04:30 80 16 02/27/25 04:30 167/109 H 02/27/25 04:19 89 95 H 145/96 H 02/27/25 04:19 81 18 02/27/25 04:09 83 22 02/27/25 04:02 145/96 H 02/27/25 03:48 82 22 02/27/25 03:44 171/106 H 02/27/25 03:33 77 17 02/27/25 03:30 156/101 H 02/27/25 03:00 184/113 H 02/27/25 03:00 92 H 20 02/27/25 02:32 79 18 153/100 H 02/27/25 02:32 80 02/27/25 01:27 82 02/27/25 01:22 02/27/25 01:22 85 20 166/108 H Pulse Ox O2 Del Method O2 Flow Rate 02/27/25 14:55 02/27/25 14:55 02/27/25 13:28 97 Room Air 02/27/25 12:13 97 Nasal Cannula 2 02/27/25 09:46 97 Nasal Cannula 2 02/27/25 09:03 98 Nasal Cannula 2 02/27/25 09:00 02/27/25 08:45 97 Nasal Cannula 2 02/27/25 08:30 02/27/25 08:24 97 Nasal Cannula 2 02/27/25 08:20 89 L Room Air 02/27/25 08:12 90 Room Air 02/27/25 08:00 02/27/25 07:30 02/27/25 07:24 92 Room Air 02/27/25 06:59 02/27/25 06:57 93 Room Air 02/27/25 06:32 02/27/25 06:30 93 Room Air 02/27/25 05:48 95 Room Air 02/27/25 05:30 02/27/25 05:05 02/27/25 05:04 02/27/25 05:00 93 Room Air 02/27/25 05:00 02/27/25 04:38 02/27/25 04:30 93 Room Air 02/27/25 04:30 02/27/25 04:19 94 Room Air 02/27/25 04:19 95 Room Air 02/27/25 04:09 93 Room Air 02/27/25 04:02 02/27/25 03:48 02/27/25 03:44 02/27/25 03:33 92 Room Air 02/27/25 03:30 02/27/25 03:00 02/27/25 03:00 93 Room Air 02/27/25 02:32 94 Room Air 02/27/25 02:32 94 Room Air 02/27/25 01:27 02/27/25 01:22 94 Room Air 02/27/25 01:22 94 Room Air Recovery Score Activity: Moves 4 extremities Respiration: Deep Breath/Cough Circulation: +/-20% PreAnes Value Consciousness: Fully Awake Oxygen Saturation: O2 needed for >90% Discharge Sedation Level of Care: Fast Track Phase II
--- NOTE | 2025-02-27 15:45 | Cardiac Catheterization ---
[facility] Data: Crosscutter Rolled Glass Cardiac Status Clinical evaluation leading to the procedure CAD Presenation: Non STEMI Anginal Classification: CCS IV Diagnostic Physicians Name: Ilya Evans MD Closure Device Recommendations: PCI without planned CABG Cardiac Cath Procedure Full Procedure Date February 27, 2025 Pre-Procedure Diagnosis Pre-Procedure Diagnosis: Non STEMI AUC Score AUC Score: 8 Post-Procedure Diagnosis Post-Procedure Diagnosis: Severe CAD, Successful PCI and Normal Intracardiac Pressures Procedure(s) Performed Procedure(s) Performed: Coronary Angiography, Left Heart Cath and Drug Eluting Stent Cigarette Making Machine Hopper Feeder Ilya Evans MD Yarn Dry Room Worker(s) Casey Estimated Blood Loss Estimated Blood Loss: 20 Medication(s) Medication(s): Clopidogrel, Fentanyl, Heparin, Lidocaine 1%, Nicardipine, Nitroglycerin and Versed Summary of Findings Indication: NSTEMI, pulmonary hypertension on echo Access: 6 Fr right radial artery, 6 Fr right antecubital vein Catheters: [place], EBU 3.5 guide, 6 Fr [place] Findings: LM -normal caliber, no significant disease LAD -medium caliber, 90% focal mid segment stenosis just after takeoff of large D2. Remainder of LAD without significant disease and extends to apex. D2 with 30% ostial stenosis Circumflex -medium caliber, 20% ostial, remainder of AV groove circumflex without significant disease. Large OM1 with 20% ostial and remainder of vessel without disease. Small left PLB without disease RCA -dominant, large caliber, 20-30% distal stenosis. Medium RPDA and right posterior AV branch without significant disease. RA 11 RV 58/13 PA 62/30 (44) PAWP 22 LV 23 PaSat 53% AoSat 87% [place] CO/CI 3.9/2.1 Thermo CO/CI 4.2/2.3 TPG 21 mmHg PVR 5.4 Wood unit -- PCI -- Antithrombotic therapy: Heparin, clopidogrel Procedure: Left main cannulated with EBU 3.5 guide Pre-procedure flow SESAR 2-3 Care Attendant 50 wire passed across lesion into distal LAD Whisper wire placed into D2 Mid LAD lesion predilated with 2.5 compliant balloon Dilated lesion stented with 3.0 x 18 mm Srini drug-eluting stent Diagonal rewired through stent struts with new remote pilot operator 50 wire Stent post-dilated with 3.5 noncompliant balloon Proximal D2 dilated with 2.0 balloon through stent struts IC vasodilators administered for spasm Residual stenosis further dilated with prolonged 2.5 mm balloon inflation Additional IC vasodilator administered Post procedure SESAR 3 flow, stent well expanded with minimal residual stenosis. Mild to moderate residual ostial stenosis in diagonal but SESAR-3 flow. No apparent cardiac complications. Arterial Closure: TR band Summary: 1. Severe single vessel coronary artery disease - 90% focal mid LAD stenosis at takeoff of D2 2. Elevated left and right-sided filling pressures 3. Pulmonary hypertension (combined pre and postcapillary) 4. Preserved cardiac output 5. Successful PCI of mid LAD with single drug-eluting stent (3.0 x 18 mm Srini; postdilated with 3.5 NC). PTCA of jailed D2 ostium with 2.5 balloon Recommendations: To PCU for continued monitoring Loaded with clopidogrel 600 mg in Crosscutter Rolled Glass Continue dual-antiplatelet therapy for at least 1 year Continue ASCVD risk factor modification Gentle diuresis as needed per Dr. Taylor Hemodynamics Rest Ao:: 139/80/135 Final Ao: 130/78/103 LV: 137/23 Recommendations Recommendations: PCI without planned CABG Radiation Exposure (mGy) 2925 Contrast (mls) 140 Anesthesia Moderate 4817-4431 Procedural Complication(s) None Disposition PCU I attest to the content of the Intraoperative Record and any orders documented therein. Any exceptions are noted below. [facility] Card Cath Procedure Codes Cardiac Catheterization Procedure 1: Cardiovascular Cath Procedures: 11863 Coronaries & LHC (+/-LV) & RHC Moderate Sedation Procedure 1: Sedation/Anesthesia: 16477 Mod Sedation by the same physician;Init15 Min Child Age 5 & Up Procedure 2: Sedation/Anesthesia: 25168 Mod Sedation by the same physician; Ea [id number] Minutes Stenting Procedure 1: Cardiovascular Stent Procedures: 55256 Perc transcatheter placement of intracoronary stent(s), with ang PG Care Time/CCT Total # of Minutes Spent Total Time Spent with Patient: Total time spent is greater than 50% in coordination of care (as documented) at patient's floor/unit and/or counseling patient:
[2025-02-27 18:18] LABS: ANTI-Xa, UFH(UnfractionatedHep 0.25 IU/ml (0.3-0.7)
--- NOTE | 2025-02-28 04:52 | Electrocardiogram Report ---
Test Reason : Blood Pressure : */* mmHG Vent. Rate : 71 BPM Atrial Rate : 71 BPM P-R Int : 146 ms QRS Dur : 76 ms QT Int : 438 ms P-R-T Axes : 22 13 -14 degrees QTcB Int : 475 ms Normal sinus rhythm T wave abnormality, consider inferior ischemia Abnormal ECG When compared with ECG of 27-Feb-2025 01:20, Premature atrial complexes are no longer Present T wave inversion now evident in Inferior leads Confirmed by Jerzy Nevarez ([id number]) on 02/28/2025 4:52:18 AM Referred By: REFERRED SELF Confirmed By: Jerzy Nevarez
--- NOTE | 2025-02-28 04:53 | Electrocardiogram Report ---
Test Reason : Blood Pressure : */* mmHG Vent. Rate : 59 BPM Atrial Rate : 59 BPM P-R Int : 156 ms QRS Dur : 76 ms QT Int : 494 ms P-R-T Axes : 31 37 79 degrees QTcB Int : 489 ms Sinus bradycardia with sinus arrhythmia Prolonged QT Abnormal ECG When compared with ECG of 27-Feb-2025 09:22, T wave inversion no longer evident in Inferior leads Confirmed by Jerzy Nevarez ([id number]) on 02/28/2025 4:52:43 AM Referred By: REFERRED SELF Confirmed By: Jerzy Nevarez
[2025-02-28 05:43] LABS: Hematocrit (blood only) 42.7 % (37.0-47.0); Hemoglobin 14.9 g/dl (12.0-16.0); Mean Corpuscular Hgb Conc 34.9 g/dL (32.0-36.0); Mean Corpuscular Volume 97.5 fL (80.0-100.0); Mean Platelet Volume 8.9 fL (9.4-12.4); Platelet Count 342 K/uL (130-400); RDW Standard Deviation 46.4 fL (36.4-46.3); Red Blood Count 4.38 M/uL (4.20-5.40); White Blood Count 11.36 K/ul (4.8-10.8)
[2025-02-28 06:01] LABS: BUN Creatinine Ratio 12.5 (10-20); Calcium 9.2 mg/dl (8.6-10.3); Creatinine Clr Calc Pharmacy 90.1 ml/min; Magnesium 1.9 mg/dl (1.7-2.4); Phosphorus 3.6 mg/dl (2.5-4.9)
[2025-02-28] MEDS: CLOPIDOGREL BISULFATE 75 MG TAB PO SCH (09:54)
[2025-02-28] MEDS: ASPIRIN 81 MG ECTAB PO SCH (09:55)
--- NOTE | 2025-02-28 11:11 | Cardiology Progress Note ---
Date of Service February 28, 2025 Assessment & Plan (1) Acute non-ST elevation myocardial infarction (NSTEMI): Plan: * Severe single vessel coronary artery disease, Normal LVEF, no regional wall motion abnormalities on pre cath TTE. * 90% focal mid LAD stenosis at takeoff of D2 * Successful PCI of mid LAD with single drug-eluting stent (3.0 x 18 mm Srini; postdilated with 3.5 NC). PTCA of jailed D2 ostium with 2.5 balloon * Continue ASA 81 mg daily (lifelong therapy) , clopidogrel 75 mg daily (for at least 1 year) * Repeat EKG (2) Pulmonary hypertension: Plan: * left and right heart catheterization performed pre PCI on 02/27/25 * RV 58 / 13 mm Hg, PA 62/30 (44), PAWP 22, LVEDP 23 mm Hg * combined pre and postcapillary * Proceed with furosemide 20 mg IV x 1 now. Attention to BP control. * smoking cessation advised * Recommend reassessment of EMILIE as outpatient. Patient intolerance of past trial of CPAP. Perhaps would tolerated an alternative mask, oral appliance, or Inspire device a consideration * Pressures may be acutely worse in the setting of the acute coronary syndrome. * Will repeat transthoracic echo as outpatient in 1-3 months. (3) HTN (hypertension): Plan: * Continue clonidine which she takes for relief of vasomotor symptoms * Continue metoprolol XL 75 mg daily * furosemide 20 mg IV x 1 now. * resume spironolactone at lower dose 25 mg daily * Consider addition of ACEI / ARB as next medication. (4) Dyslipidemia: Plan: * LDL 66 mg/dl. * Despite low cholesterol, started atorvastatin given acute coronary syndrome Disposition: remain in hospital on telemetry today pending optimization of volume status and systemic BP. Cardiac rehab as outpatient. Case discussed with Dr Perez of the hospitalist service for the purpose of coordination of care. I spent a total of 50 minutes on the date of service in preparation, delivery, and documentation of the care provided to this patient, excluding any time spent in the performance of separately billed services. Admission and Anticipated Discharge Date Admission Date: February 27, 2025 Subjective Patient seen in cardiology follow up . She denies chest discomfort or shortness of breath. Her affect is flat and she states that she does not want to hear any more "bad news" with regards to her test results. Telemetry reveals sinus rhythm in the 60s with occasional PACs. Review of Systems Review of Systems: All systems reviewed & are unremarkable except as noted in HPI & below Physical Exam Physical Exam: Temp Pulse Resp BP Pulse Ox O2 Del Method O2 Flow Rate 37.1 C 59 L 23 145/89 H 96 Room Air 97 02/28/25 08:03 02/28/25 08:03 02/28/25 08:03 02/28/25 08:03 02/28/25 08:03 02/28/25 08:03 02/27/25 16:15 General: no acute distress and stated age Eyes: conjunctiva are pink and non-injected, sclera clear Neck: normal jugular venous pulse, no hepatojugular reflux Chest: normal shape and normal respiratory effort Lungs: clear to auscultation and percussion Cardiac Exam: - regular heart sounds, no murmurs, rubs, or gallops, no jugular venous distention Abdomen: abdomen soft, non-tender, no abnormal masses and no hepatosplenomegaly Musculoskeletal: no gait disturbance, no weakness Extremities: no edema and no cyanosis Right radial artery procedure site is clean dry and intact postcardiac catheterization without erythema or ecchymosis Neuro:awake, conversant, follows commands, no focal motor deficits Psych: appropriate affect and insight. Results & Data Vital Signs (Past 12 Hours) Vital Signs Temp Pulse Pulse Resp BP Pulse Ox O2 Del Method 02/28/25 08:03 37.1 C 59 L 23 145/89 H 96 Room Air 02/28/25 08:00 73 02/28/25 05:00 37 C 76 18 179/100 H 93 Room Air Laboratory Results CBC 02/28/25 Range/Units 05:12 WBC 11.36 H (4.8-10.8) K/ul RBC 4.38 (4.20-5.40) M/uL Hgb 14.9 (12.0-16.0) g/dl Hct 42.7 (37.0-47.0) % Plt Count 342 (130-400) K/uL Comprehensive Metabolic Panel 02/28/25 Range/Units 05:12 Sodium 134 L (136-145) mmol/L Potassium 4.0 (3.5-5.1) mmol/L Chloride 101 (98-107) mmol/L Carbon Dioxide 28 (21-32) mmol/L BUN 9 (6-23) mg/dl Creatinine 0.72 (0.6-1.2) mg/dl Glucose 119 H (70-99(Fasting)) mg/dl Calcium 9.2 (8.6-10.3) mg/dl Intake and Output 02/27/25 02/28/25 02/28/25 22:59 06:59 14:59 Intake Total 1509 / 1675.367 Balance 1509 / 1675.367 Intake: IV 859 / 1025.367 Heparin 45577 Unit/500 ml D5w 0 / 166.367 25,000 units In 500 ml @ 1,300 UNITS/HR 26 mls/hr IV .[id number] WILLIAM Rx#:[id number] Sodium Chloride 0.9% 1,000 ml @ 859 / 859 60 mls/hr IV .[id number] STA Rx#: [id number] Oral 650 / 650 Other: # Unmeasured Voids 2 1 (3) HTN (hypertension) Hypertension type: primary hypertension Qualified Code(s): I10 - Essential (primary) hypertension
[2025-02-28] MEDS: FUROSEMIDE INJ 20 MG/2 ML VIAL IV ONE (11:46)
[2025-02-28] MEDS: POTASSIUM CHLORIDE CRTAB 20 MEQ TABCR PO STA (11:46)
[2025-02-28] MEDS: SPIRONOLACTONE 25 MG TAB PO SCH (12:40)
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
[2025-02-28] MEDS: ATROPINE SULFATE 0.1 MG/ML 10ML SYR IV ONE (19:24)
[2025-03-01 06:15] LABS: Hematocrit (blood only) 46.5 % (37.0-47.0); Hemoglobin 16.5 g/dl (12.0-16.0); Mean Corpuscular Hemoglobin 34.8 pg (25.0-34.0); Mean Corpuscular Hgb Conc 35.5 g/dL (32.0-36.0); Mean Corpuscular Volume 98.1 fL (80.0-100.0); Mean Platelet Volume 8.9 fL (9.4-12.4); Platelet Count 377 K/uL (130-400); RDW Coefficient of Variation 12.8 % (11.5-14.5); RDW Standard Deviation 46.4 fL (36.4-46.3); Red Blood Count 4.74 M/uL (4.20-5.40); White Blood Count 10.69 K/ul (4.8-10.8)
[2025-03-01 06:32] LABS: BUN Creatinine Ratio 19.7 (10-20); Calcium 9.8 mg/dl (8.6-10.3); Creatinine Clr Calc Pharmacy 84.4 ml/min; Potassium 4.1 mmol/L (3.5-5.1)
--- NOTE | 2025-03-01 10:59 | Cardiology Progress Note ---
Date of Service March 01, 2025 Assessment & Plan (1) Acute non-ST elevation myocardial infarction (NSTEMI): Plan: * Severe single vessel coronary artery disease, Normal LVEF, no regional wall motion abnormalities on pre cath TTE. * 90% focal mid LAD stenosis at takeoff of D2 * Successful PCI of mid LAD with single drug-eluting stent (3.0 x 18 mm Srini; postdilated with 3.5 NC). PTCA of jailed D2 ostium with 2.5 balloon * Continue ASA 81 mg daily (lifelong therapy) , clopidogrel 75 mg daily (for at least 1 year) * Repeat EKG on 02/28 revealed stable findings. (2) Pulmonary hypertension: Plan: * left and right heart catheterization performed pre PCI on 02/27/25 * RV 58 / 13 mm Hg, PA 62/30 (44), PAWP 22, LVEDP 23 mm Hg * combined pre and postcapillary * Proceed with second dose of furosemide 20 mg IV on 03/01 (had dose on 02/28/25 also). Attention to BP control. * smoking cessation advised * Recommend reassessment of EMILIE as outpatient. Patient intolerance of past trial of CPAP. Perhaps would tolerated an alternative mask, oral appliance, or Inspire device a consideration. * Nocturnal pulse oximetry this admission with significant desaturation events. * Pressures may be acutely worse in the setting of the acute coronary syndrome. * Will repeat transthoracic echo as outpatient in 1-3 months. (3) HTN (hypertension): Plan: * Continue clonidine which she takes for relief of vasomotor symptoms * Continue metoprolol XL 75 mg daily * furosemide 20 mg IV x 1 now. * Increase spironolactone to 50 mg daily. Pt states she is on 50 mg two times per day for BP control outside hospital. * Consider addition of ACEI / ARB as next medication, however, patient specifically states she cannot take losartan, but does not know why. Will need to research this in outpatient chart. (4) Dyslipidemia: Plan: * LDL 66 mg/dl. * Despite low cholesterol, started atorvastatin given acute coronary syndrome Disposition: remain in hospital on telemetry today pending optimization of volume status and systemic BP. Cardiac rehab as outpatient. Case discussed with Dr Larson of the hospitalist service for the purpose of coordination of care. I spent a total of 45 minutes on the date of service in preparation, delivery, and documentation of the care provided to this patient, excluding any time spent in the performance of separately billed services. Admission and Anticipated Discharge Date Admission Date: February 27, 2025 Subjective Patient seen in cardiology follow up of her chief complaint of shortness of breath and chest tightness. No recurrent symptoms since cardiac catheterization. Telemetry reveals sinus bradycardia with rate transiently down to 32 bpm on 03/01/25 at 5:53 am and at 12:26 am. Currently sinus rhythm in the 60s to 70s. Review of Systems Review of Systems: All systems reviewed & are unremarkable except as noted in HPI & below Physical Exam Physical Exam: Temp Pulse Resp BP Pulse Ox O2 Del Method O2 Flow Rate 36.7 C 89 18 147/102 H 97 Room Air 97 03/01/25 08:15 03/01/25 08:15 03/01/25 08:15 03/01/25 08:15 03/01/25 08:15 03/01/25 08:15 02/27/25 16:15 General: no acute distress and stated age Eyes: conjunctiva are pink and non-injected, sclera clear Neck: normal jugular venous pulse, no hepatojugular reflux Chest: normal shape and normal respiratory effort Lungs: clear to auscultation and percussion Cardiac Exam: - regular heart sounds, no murmurs, rubs, or gallops, no jugular venous distention Abdomen: abdomen soft, non-tender, no abnormal masses and no hepatosplenomegaly Musculoskeletal: no gait disturbance, no weakness Extremities: no edema and no cyanosis Right radial artery procedure site is clean dry and intact postcardiac catheterization without erythema or ecchymosis Neuro:awake, conversant, follows commands, no focal motor deficits Psych: appropriate affect and insight. Results & Data Vital Signs (Past 12 Hours) Vital Signs Temp Pulse Pulse Pulse Resp BP Pulse Ox 03/01/25 08:15 36.7 C 89 18 147/102 H 97 03/01/25 07:00 80 03/01/25 02:56 36.7 C 78 16 154/92 H 92 03/01/25 02:13 72 02/28/25 22:51 36.7 C 65 18 159/104 H 94 Pulse Ox O2 Del Method O2 Del Method 03/01/25 08:15 Room Air 03/01/25 07:00 03/01/25 02:56 Room Air 03/01/25 02:13 94 Room Air 02/28/25 22:51 Room Air Laboratory Results CBC 03/01/25 Range/Units 05:12 WBC 10.69 (4.8-10.8) K/ul RBC 4.74 (4.20-5.40) M/uL Hgb 16.5 H (12.0-16.0) g/dl Hct 46.5 (37.0-47.0) % Plt Count 377 (130-400) K/uL Comprehensive Metabolic Panel 03/01/25 Range/Units 05:12 Sodium 134 L (136-145) mmol/L Potassium 4.1 (3.5-5.1) mmol/L Chloride 99 (98-107) mmol/L Carbon Dioxide 27 (21-32) mmol/L BUN 15 (6-23) mg/dl Creatinine 0.76 (0.6-1.2) mg/dl Glucose 123 H (70-99(Fasting)) mg/dl Calcium 9.8 (8.6-10.3) mg/dl Intake and Output 02/28/25 03/01/25 03/01/25 22:59 06:59 14:59 Intake Total 240 / 920 200 / 920 Balance 240 / 920 200 / 920 Intake: Oral 240 / 920 200 / 920 Other: # Unmeasured Voids 1 1 Weight 81.2 kg Weight Measurement Method Built in [facility] (3) HTN (hypertension) Hypertension type: primary hypertension Qualified Code(s): I10 - Essential (primary) hypertension
[2025-03-01] MEDS: FUROSEMIDE INJ 20 MG/2 ML VIAL IV ONE (12:04)
[2025-03-01] MEDS: SPIRONOLACTONE 25 MG TAB PO ONE (12:04)
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
[2025-03-02] MEDS: amLODIPine BESYLATE 5 MG TAB PO ONE (03:16)
[2025-03-02 06:27] LABS: BUN Creatinine Ratio 23.7 (10-20); Calcium 9.7 mg/dl (8.6-10.3); Potassium 4.3 mmol/L (3.5-5.1)
[2025-03-02] MEDS: SPIRONOLACTONE 25 MG TAB PO SCH (08:48)
[2025-03-02] MEDS: BACLOFEN 10 MG TAB PO STA (10:12)
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
--- NOTE | 2025-03-02 10:43 | Cardiology Progress Note ---
Date of Service March 02, 2025 Assessment & Plan (1) Acute non-ST elevation myocardial infarction (NSTEMI): Plan: * Severe single vessel coronary artery disease, Normal LVEF, no regional wall motion abnormalities on pre cath TTE. * 90% focal mid LAD stenosis at takeoff of D2 * Successful PCI of mid LAD with single drug-eluting stent (3.0 x 18 mm [place]; postdilated with 3.5 NC). PTCA of jailed D2 ostium with 2.5 balloon * Continue ASA 81 mg daily (lifelong therapy) , clopidogrel 75 mg daily (for at least 1 year) * Repeat EKG on 02/28 revealed stable findings. (2) Pulmonary hypertension: Plan: * left and right heart catheterization performed pre PCI on 02/27/25 * RV 58 / 13 mm Hg, PA 62/30 (44), PAWP 22, LVEDP 23 mm Hg * combined pre and postcapillary * Proceed with second dose of furosemide 20 mg IV on 03/01 (had dose on 02/28/25 also). Attention to BP control. * smoking cessation advised * Recommend reassessment of EMILIE as outpatient. Patient intolerance of past trial of CPAP. Perhaps would tolerated an alternative mask, oral appliance, or Inspire device a consideration. * Nocturnal pulse oximetry this admission with significant desaturation events. * Pressures may be acutely worse in the setting of the acute coronary syndrome. * Will repeat transthoracic echo as outpatient in 1-3 months. (3) HTN (hypertension): Plan: * Continue clonidine which she takes for relief of vasomotor symptoms and HTN per review of outpatient notes. * Continue metoprolol XL 75 mg daily * increase spironolactone back to outpatient dose of 50 mg two times per day * Patient has had a cough in the past with ACEI and ARB therefore will not be prescribed. * BP remains above goal , had been on Amlodipine 10 mg daily as well at [facility] in the past. * Given low sodium will avoid addition of thiazide or loop diuretic and add back amlodipine 5 mg daily. (4) Dyslipidemia: Plan: * LDL 66 mg/dl. * Despite low cholesterol, started atorvastatin given acute coronary syndrome Disposition: Repeat BP reading at 10:14 am down to 159/93. Stable for discharge from cardiac perspective. Cardiac rehab as outpatient- referral placed. Will arrange outpatient cardiology follow up I spent a total of 45 minutes on the date of service in preparation, delivery, and documentation of the care provided to this patient, excluding any time spent in the performance of separately billed services. Admission and Anticipated Discharge Date Admission Date: February 27, 2025 Subjective Patient seen in cardiology follow-up. Denies chest discomfort or shortness of breath. Telemetry reveals sinus rhythm in the 70s to 80s. Had some skill skeletal spasm earlier today which may explain transient elevation in the blood pressure. Physical Exam Physical Exam: Temp Pulse Resp BP Pulse Ox O2 Del Method O2 Flow Rate 37.1 C 72 18 159/93 H 97 Room Air 97 03/02/25 07:35 03/02/25 10:14 03/02/25 07:35 03/02/25 10:14 03/02/25 07:35 03/02/25 07:35 02/27/25 16:15 General: no acute distress and stated age Eyes: conjunctiva are pink and non-injected, sclera clear Neck: normal jugular venous pulse, no hepatojugular reflux Chest: normal shape and normal respiratory effort Lungs: clear to auscultation and percussion Cardiac Exam: - regular heart sounds, no murmurs, rubs, or gallops, no jugular venous distention Abdomen: abdomen soft, non-tender, no abnormal masses and no hepatosplenomegaly Musculoskeletal: no gait disturbance, no weakness Extremities: no edema and no cyanosis Right radial artery procedure site is clean dry and intact postcardiac catheterization without erythema or ecchymosis Neuro:awake, conversant, follows commands, no focal motor deficits Psych: appropriate affect and insight. Results & Data Vital Signs (Past 12 Hours) Vital Signs Temp Pulse Resp BP Pulse Ox O2 Del Method 03/02/25 10:14 72 159/93 H 03/02/25 07:35 37.1 C 75 18 179/102 H 97 Room Air 03/02/25 02:35 36.8 C 76 16 173/100 H 94 Room Air 03/01/25 22:47 36.9 C 62 16 168/91 H 96 Room Air Laboratory Results Comprehensive Metabolic Panel 03/02/25 Range/Units 05:22 Sodium 133 L (136-145) mmol/L Potassium 4.3 (3.5-5.1) mmol/L Chloride 99 (98-107) mmol/L Carbon Dioxide 25 (21-32) mmol/L BUN 18 (6-23) mg/dl Creatinine 0.76 (0.6-1.2) mg/dl Glucose 122 H (70-99(Fasting)) mg/dl Calcium 9.7 (8.6-10.3) mg/dl Intake and Output 03/01/25 03/02/25 03/02/25 22:59 06:59 14:59 Intake Total 480 / 1640 300 / 1640 Balance 480 / 1640 300 / 1640 Intake: Oral 480 / 1640 300 / 1640 Other: # Unmeasured Voids 1 Weight 78.5 kg Weight Measurement Method Built in [facility] (3) HTN (hypertension) Hypertension type: primary hypertension Qualified Code(s): I10 - Essential (primary) hypertension
[2025-03-02 11:13] VITALS: PULSE 69; RESP 17; TEMP 98.2; O2SAT 94
[2025-03-02 12:02] VITALS: BP 139/95
[2025-03-02] MEDS: amLODIPine BESYLATE 5 MG TAB PO SCH (13:53)
--- NOTE | 2025-03-02 16:15 | Discharge Summary ---
Date of Service March 02, 2025 Admission HPI Per Admitting Provider History obtained from patient, family, and records. Medical history significant for hypertension, hyperlipidemia, prediabetes, hypothyroidism, migraine, mood disorder, ongoing tobacco abuse. Patient experienced shortness of breath with substernal tightness after moving a tree blocking the road last night. Could not catch her breath. Usual cough symptoms from smoking as per patient. Short-lived episode last week also noted after moving a tree. Patient still uncomfortable upon arrival at home. Nausea and dry heaving symptoms. Denies headache or actual abdominal pain. EMS called to patient's home. Aspirin administered prior to ED transport. IV heparin administered at the ER. Chest tightness relieved by nitroglycerin at the ER. Medical History as above Surgical History : BTL, uterine ablation, cholecystectomy Family History : Heart disease, mood disorder, alcoholism, Crohn's disease, DM, OCD, lung cancer Personal/Social history : 1.5 pack daily, occasional EtOH intake, [employer] employee Admission Exam Per Admitting Provider Physical Exam: GENERAL: Anxious, obese,, no respiratory distress SKIN: Normal color, warm HEENT: Bespectacled, pink palpebral conjunctivae, no ptosis, moist buccal mucosa NECK : Supple, no tenderness CHEST : CTA, no tenderness HEART : RRR, no obvious murmurs ABDOMEN: Some distention, nontender EXTREMITIES : No LE swelling/tenderness, palpable pulses, no other conspicuous deformities noted NEUROLOGIC : Coherent, no facial asymmetry, no other gross focality Principal Diagnosis NSTEMI, status post cardiac cath with successful PCI of mid LAD, hypertension, pulmonary hypertension Discharge Exam Lying in bed without any acute distress Constitutional well developed, well nourished, + ill appearing and + obese Eyes PERRL, conjunctivae normal, anicteric sclerae ENMT external ear and nose normal, oropharynx normal Neck trachea midline, no thyromegaly Respiratory no respiratory distress Auscultation: lungs clear to auscultation bilaterally Cardiovascular Rate/Rhythm: regular rate, regular rhythm and + bradycardic Heart Sounds: normal S1 and normal S2; no murmur Extremities: + edema ( trace edema bilaterally) Gastrointestinal (Abdomen) Inspection/Auscultation: normal bowel sounds; abdomen not distended Percussion/Palpation: abdomen soft; abdomen nontender Neurologic normal touch/pain/proprioception and moves all extremities; no focal motor deficits Psychiatric A+Ox3, euthymic affect Lymphatic no cervical or axillary lymphadenopathy Discharge Data Allergies Allergy/AdvReac Type Severity Reaction Status Date / Time No Known Allergies Allergy Unknown Verified 04/23/05 17:44 Consultations 02/27/25 02:56 ED Decision to Admit Stat 02/27/25 03:53 Consult Cardiology Routine 03/02/25 10:42 Consult Cardiac Rehabilitation Routine Procedures Performed Operation Date: 02/27/25 12:30 Actual Procedures p Cineradiography w/Routine Exam - Ilya Evans MD p Cath, Right and Left Heart - Ilya Evans MD s Drug Eluting Stent SGl Vessel - Ilya Evans MD s POBA each ADDTL Vessel - Ilya Evans MD Ordered Studies 02/27/25 12:30 CL Cath Imgs for PACS use only Routine Hospital Course (1) NSTEMI (non-ST elevated myocardial infarction): 54-year-old lady with PMH of HTN, HLD, prediabetes, hypothyroidism, migraine, mood disorder, ongoing tobacco abuse who presented with complaint of shortness of breath with substernal tightness after moving a tree block blocking the road the night prior to arrival. Patient also reports having similar short-lived episode last week as well after moving a tree. Patient is being managed for the following: NSTEMI: Pulmonary HTN: noted on echo and heart cath. Patient presents with shortness of breath and chest tightness after activity. See above. Troponin elevated at presentation, up trended. EKG w/ TWI in inf leads. Echo with EF of 55 to 60%, no left ventricular wall motion abnormalities noted. S/p heparin drip. Patient started on aspirin, statin, plavix. Continue. s/p cardiac cath 02/27: 1. Severe single vessel coronary artery disease- 90% focal mid LAD stenosis at takeoff of D2 2. Elevated left and right-sided filling pressures 3. Pulmonary hypertension (combined pre and postcapillary) 4. Preserved cardiac output 5. Successful PCI of mid LAD with single drug-eluting stent (3.0 x 18 mm Srini; postdilated with 3.5 NC).PTCA of jailed D2 ostium with 2.5 balloon Cardiology on board, c/w DAPT, statin, lasix for pHTN, cardiac meds being optimized, repeat echo in 1-3 months, f/u w/ cardio on dc. Encouraged smoking cessation, sleep study as OP, cardiac rehab as OP. Remains stable without any cardiac symptoms of palpitation, chest pain or shortness of breath Remains generally weak but denies any other symptoms She will need to stay tonight for better control of her blood pressure Denies any chest pain, palpitation or shortness of breath Likely go home this afternoon Hypertension Medications are being adjusted Noted to have high diastolic blood pressure Seems to be improving She received a dose of amlodipine 2.5 mg last night for high blood pressure Her blood pressure seems to be stable this morning Likely discharge this afternoon Muscle spasms Complains of spasmodic pain in multiple areas including chest, legs which has been going on for some time but worse for the last 7 days Likely secondary to statins Will try small dose of baclofen x 1 to see if any change Advised to use coq.10 as an outpatient Leukocytosis: Likely secondary to acute stress, no signs and symptoms of acute infection. Downtrending. Monitor off antibiotic. White count has been normalized Other chronic medical conditions: Continue with/resume home meds as and when able Hyperlipidemia, triglycerides of 275, low HDL from lipid panel 2022 Prediabetes, hemoglobin A1c of 6.28 March 2024 , 6.1 this admission. Repeat A1c in 3 months, follow-up with PCP for long-term monitoring. Hypothyroidism, euthyroid as of recent outpatient TSH Mood disorder, stable Ongoing tobacco abuse, Smoking cessation consult, nicotine patch as needed. DVT prophylaxis. Hep sc. Full code Patient's son Mr. Polina Magana, contact #[phone]. Dispo: likely discharge this afternoon Text document was generated using [employer] voice recognition software. It may contain grammatical or spelling errors. Kindly contact undersigned for clarification of any documentation item in question. Total Time Total Time Spent Total Time Spent (In Minutes): 35 Minutes Discharge Plan Discharge Items Patient Disposition: Home - Self-Care Reason For Visit: ACS Discharge Diagnosis: NSTEMI, status post cardiac cath with successful PCI of mid LAD, hypertension, pulmonary hypertension Condition on Discharge: Fair Activity: Resume your previous activity Non-emergency contact: Primary Care Provider Call non-emergency contact if: you have any medication questions and your symptoms worsen Follow-up/Referrals: Jordan Linton, [Primary Care Provider] - 03/06/25 1:40 pm (Date & Time 03/06/2025 1:40 PM Provider: Jordan Linton, [facility] ) Diet: Heart Healthy and Low Sodium (2gm) Addtl Attending Provider Instructions: Please take precautions to avoid falls Take your medications as advised Continue aspirin 81 mg daily for lifelong and clopidogrel 75 mg daily for at least 1 year Will need to arrange for sleep study as an outpatient to assess sleep apnea Pending Studies at Discharge: No Stand-Alone Forms: My [facility], Smoking Cessation Medications and DC Order Prescriptions: New nicotine [Nicoderm CQ] 21 mg/24 hr Patch 24 Hour 1 patch transdermal QAM Qty: 28 0RF atorvastatin 40 mg Tablet 40 mg PO QAM Qty: 30 0RF clopidogrel 75 mg Tablet 75 mg PO QAM Qty: 30 0RF amlodipine [Norvasc] 5 mg Tablet 5 mg PO QAM Qty: 3 0RF aspirin 81 mg Tablet,Delayed Release (Dr/Ec) 81 mg PO DAILY Qty: 30 0RF Continued metoprolol succinate 50 mg tablet extended release 24 hr 75 mg PO DAILY Rx Instructions: Pt states she takes 75mg in the morning. spironolactone 25 mg tablet 50 mg PO BID clonidine HCl 0.2 mg tablet 0.2 mg PO DAILY ziprasidone HCl [Geodon] 20 mg capsule 20 mg PO BID colestipol 1 gram tablet 1 g PO BID escitalopram oxalate 5 mg tablet 5 mg PO DAILY Discharge Orders: Discharge Order (Routine); Ordered 03/02/25 Ordered By: Shagufta Walters/Other Patient Handouts: Prediabetes, 5 Steps for Eating Healthier Admission Data Admit Date/Time: 02/27/25 03:14 Attending Provider: Shagufta Larson Admit Provider: Adair Hyman Primary Care Provider: Jordan Linton Other Providers: Adair Hyman; Margaret Mace; Terrell Taylor; Satish Hicks; Raul Hoffmann; Tony Landin; Cosme Fontenot; Neena Solis; Tamanna Valdez; Michelle Ferreira; Lin Pinzon; Margaret Swanson; Reginald Mejia; Ronak Farooq; Liz Dewitt; Yuly Martinez; Karol Quijano; Yash Quan; David Salazar; Rica Gardner; Mariela Solis; Juan Manuel Perez Other Interventions: Discharge Summary Assessment (RN) Last Done: 03/02/25 11:50
[2025-03-02] MEDS ORDERED: SPIRONOLACTONE 25 MG TAB PO SCH (21:00)
--- NOTE | 2025-03-03 21:45 | Electrocardiogram Report ---
Test Reason : Blood Pressure : */* mmHG Vent. Rate : 59 BPM Atrial Rate : 59 BPM P-R Int : 148 ms QRS Dur : 76 ms QT Int : 522 ms P-R-T Axes : 20 9 80 degrees QTcB Int : 516 ms Sinus bradycardia Prolonged QT Abnormal ECG When compared with ECG of 27-Feb-2025 16:02, T wave amplitude has increased in Lateral leads Confirmed by Jerzy Nevarez ([id number]) on 03/03/2025 9:45:25 PM Referred By: REFERRED SELF Confirmed By: Jerzy Nevarez
== END 2025-03-02 14:09 | disposition home or self-care (01) | DRG 322 ==
LOC: ED 01:15 → SUATTDRO 03:14 → EDINP 03:14 → 2E 03:53